=== PATIENT | female | born 1935 | race Caucasian/White ===

== ENCOUNTER 2020-09-02 16:02 | Emergency (ER) | payer OTHER ==
[~2020-09-02] VITALS: Ht 167.6 cm; Wt 69.0 kg
[2020-09-02] MEDS ORDERED: NORVASC5 MG PO (17:23)
[2020-09-02] MEDS ORDERED: ASA81BEC PO (17:23)
[2020-09-02] MEDS ORDERED: OMEPRAZOLE40 MG PO (17:24)
[2020-09-02] MEDS ORDERED: FLORANEX TABLE1 EACH PO (17:24)
[2020-09-02] MEDS ORDERED: IRON18 M1 PO (17:25)
[2020-09-02] MEDS ORDERED: TOPROL XL25 MG PO (17:26)
[2020-09-02] MEDS ORDERED: LISINOPRIL20 MG PO (17:26)
[2020-09-02] MEDS ORDERED: LIPITOR40 MG PO (17:26)
[2020-09-02] MEDS ORDERED: ADVIL200 M3 PO (17:27)
[2020-09-02] MEDS ORDERED: ADVIL PM LIQUI1 EACH PO (17:27)
[2020-09-02] MEDS ORDERED: CEPHALEXIN500 MG PO (17:48)
[2020-09-02 17:59] VITALS: BP 123/54
== END 2020-09-02 18:02 | disposition home or self-care (01) ==
LOC: ER 16:02
DX: S91.202A Unspecified open wound of left great toe with damage to nail, initial encounter (principal); I10 Essential (primary) hypertension; Z79.82 Long term (current) use of aspirin; Z88.5 Allergy status to narcotic agent; Z91.040 Latex allergy status; Z88.0 Allergy status to penicillin; W22.03XA Walked into furniture, initial encounter; Y93.01 Activity, walking, marching and hiking; Y92.89 Other specified places as the place of occurrence of the external cause; Y99.9 Unspecified external cause status